=== PATIENT | female | born 1945 | race Caucasian/White ===

== ENCOUNTER → 2018-05-04 | Outpatient (CLI) | payer MEDICARE, BC ==
--- NOTE | 2018-05-14 17:12 | KCIC ---
Bilateral digital screening mammograms with 3-D tomosynthesis: Reason for examination: Routine screening. Comparison is made to previous studies dated 05/23/2015 and 05/19/2014. Bilateral mammograms in CC and oblique projections were obtained with 2-D imaging and 3-D tomosynthesis imaging on a Siemens Inspiration unit and reviewed on the workstation. Interpretation was made with the benefit of CAD. The skin and nipples show no abnormalities. No abnormal axillary lymph nodes are seen. The breast parenchyma is heterogeneously dense. (Breast density: Category C.) There appears to be new 5 mm nodule at the 4:00 B position of the right breast. Recommend further evaluation with ultrasound. There are no other dominant masses, suspicious calcifications or architectural distortion. Impression: Small 5 mm nodule at the 4:00 B position of the right breast. Recommend further evaluation with ultrasound. Your patient's mammogram demonstrates that she has dense breast tissue (breast density category C or D), which could hide abnormalities, and if she has other risk factors for breast cancer that have been identified, she might benefit from supplemental screening tests that may be suggested by you as her ordering physician. Dense breast tissue, in and of itself, is a relatively common condition. Therefore, this information is not provided to cause undue concern, but rather to raise your awareness and to promote discussion with your patient regarding the presence of other risk factors, in addition to dense breast tissue. Your patient's mammography results will be sent to her. BI-RAD Category 0: Incomplete. Needs additional imaging evaluation. "Our facility is accredited by the [employer] Mammography [employer]." This patient's information has been entered into a reminder system for the patient to be notified with the results of her examination and a target date for the next mammogram. Electronically signed by: Janett Carrera MD (05/14/2018 5:08 PM) [id number]
== END | disposition home or self-care (01) ==
LOC: KCIC MAMMO 14:20
PROVIDERS: ATTEND Internal Medicine
DX: Z12.31 Encounter for screening mammogram for malignant neoplasm of breast (principal)
CPT/HCPCS: 77063; 77067

== ENCOUNTER → 2018-05-25 | Outpatient (CLI) | payer MEDICARE, BC ==
--- NOTE | 2018-05-25 12:41 | KCIC ---
Right breast ultrasound: Reason for examination: Nodular density on screening mammogram. Comparison is made to mammographic exam dated 05/04/2018. Right whole breast ultrasound including evaluation of all 4 quadrants and the retroareolar and axillary regions of the right breast was performed. In the 4:00 position 7 cm from the nipple, there is a hypoechoic circumscribed lesion measuring 5 x 4.3 mm in greatest dimension. This probably represents a small fibroadenoma or complicated cyst. There are no other cystic or solid lesions seen. No abnormal appearing lymph nodes are seen in the right axilla. IMPRESSION: Small circumscribed lesion at the 4:00 position which has a benign appearance and likely represents a small complicated cyst or fibroadenoma. Recommend reevaluation with ultrasound in 3 months. BI-RADS Category 3: Probably Benign. "Our facility is accredited by the [employer] Mammography [employer]." This patient's information has been entered into a reminder system for the patient to be notified with the results of her examination and a target date for the next mammogram. Electronically signed by: Janett Carrera MD (05/25/2018 12:36 PM) [id number]
== END | disposition home or self-care (01) ==
LOC: KCIC US 09:51
PROVIDERS: ATTEND Internal Medicine
DX: N63.14 Unspecified lump in the right breast, lower inner quadrant (principal)
CPT/HCPCS: 76641